=== PATIENT | female | born 1945 | race Caucasian/White ===

== ENCOUNTER → 2019-03-14 09:54 | Outpatient (CLI) | payer OTHER, SELFPAY ==
--- NOTE | 2019-03-14 | DI.RAD.S_ITS ---
PROCEDURE: XR LUMBAR SPINE 2-3V INDICATIONS: LOW BACK PAIN TECHNIQUE: 3 views of the lumbar spine were acquired. COMPARISON: [facility], CR, XR THORACIC SPINE 3V, 03/14/2019, 10:15. FINDINGS: Bones: 5 [id number] vertebrae are present. There is normal bony alignment. No vertebral body compression fractures. No suspicious bony lesions. There is moderate degenerative disc disease at L3-L4, and mild degenerative disc disease at other levels. Moderate to severe facet arthropathy at L 3-L4, L4-L5 and L5-S1. Soft tissues: Overlying bowel gas pattern is normal. No suspicious soft tissue calcifications. IMPRESSION: Degenerative disc and facet disease. Dictated by: Jose Guadalupe Willoughby M.D. on 03/14/2019 at 14:34 Approved by: Jose Guadalupe Willoughby M.D. on 03/14/2019 at 14:35
--- NOTE | 2019-03-14 | DI.RAD.S_ITS ---
PROCEDURE: XR THORACIC SPINE 3V INDICATIONS: THORACIC BACK PAIN TECHNIQUE: 3 views of the thoracic spine were acquired. COMPARISON: [facility], , XR LUMBAR SPINE 2-3V, 03/14/2019, 10:15. FINDINGS: Bones: Mild compression fracture at T6 and T7 with 25% loss of vertebral body height. No suspicious bony lesions. 12 pairs of ribs are noted, and appear intact where visualized. There is mild degenerative disc disease in thoracic and visualized upper lumbar spine. Soft tissues: No paravertebral stripe thickening. IMPRESSION: 1. Mild compression fracture of T6 and T7 of uncertain chronicity. If there is acute injury, MRI may be helpful. 2. Mild degenerative disc disease. Dictated by: Jose Guadalupe Willoughby M.D. on 03/14/2019 at 14:36 Approved by: Jose Guadalupe Willoughby M.D. on 03/14/2019 at 14:39
== END ==
PROVIDERS: PCP Internal Medicine; Visit Provider Internal Medicine
DX: M54.5 Low back pain (principal); M48.54XA Collapsed vertebra, not elsewhere classified, thoracic region, initial encounter for fracture; M85.851 Other specified disorders of bone density and structure, right thigh; Z78.0 Asymptomatic menopausal state; M51.36 Other intervertebral disc degeneration, lumbar region; M51.34 Other intervertebral disc degeneration, thoracic region; M47.816 Spondylosis without myelopathy or radiculopathy, lumbar region; M47.817 Spondylosis without myelopathy or radiculopathy, lumbosacral region
CPT/HCPCS: 72072; 72100; 77080

== ENCOUNTER → 2020-04-30 12:02 | Outpatient (CLI) | payer OTHER, SELFPAY ==
--- NOTE | 2020-04-30 12:05 | DI.RAD.S_ITS ---
PROCEDURE: XR KNEE RT 3V INDICATIONS: Right knee pain TECHNIQUE: 3 views of the knee were acquired. COMPARISON: None. FINDINGS: Bones: No fractures or dislocations. No suspicious bony lesions. Moderate patellofemoral and lateral compartment osteoarthritis. Mild medial compartment osteoarthritis. Soft tissues: No joint effusion. No suspicious soft tissue calcifications. IMPRESSION: 1. Osteoarthritis. 2. No acute osseous lesion. If symptoms and/or clinical suspicion for pathology persists, further assessment with advanced imaging (e.g. CT, MRI or bone scan) may be helpful. Dictated by: Viki Romero MD, PhD on 04/30/2020 at 17:16 Approved by: Viki Romero MD, PhD on 04/30/2020 at 17:17
--- NOTE | 2020-04-30 12:05 | DI.RAD.S_ITS ---
PROCEDURE: XR HAND RT MIN 3V INDICATIONS: Right hand pain TECHNIQUE: 3 views of the hand(s) acquired. COMPARISON: None. FINDINGS: Bones: No fractures or dislocations. Carpal bones are normally aligned. No suspicious bony lesions. Moderate 1st [facility] joint osteoarthritis. Mild triscaphe joint osteoarthritis. Soft tissues: No suspicious soft tissue calcifications. IMPRESSION: 1. Osteoarthritis. 2. No fracture. No acute osseous lesion. If symptoms and/or clinical suspicion for pathology persists, further assessment with repeat radiographs (7-10 days) or advanced imaging (e.g. CT, MRI or bone scan) may be helpful. Dictated by: Viki Romero MD, PhD on 04/30/2020 at 17:15 Approved by: Viki Romero MD, PhD on 04/30/2020 at 17:16
== END ==
PROVIDERS: PCP Registered Nurse; Referring Provider Registered Nurse; Visit Provider Registered Nurse
DX: M25.561 Pain in right knee (principal); M17.11 Unilateral primary osteoarthritis, right knee; M79.641 Pain in right hand; M19.041 Primary osteoarthritis, right hand
CPT/HCPCS: 73130; 73562

== ENCOUNTER → 2020-05-03 08:18 | Outpatient (CLI) | payer OTHER, SELFPAY ==
[2020-05-03 09:02] LABS: Add Manual Diff / Slide Review NO; Basophils Absolute Auto 0 /uL (0-100); Basophils Percent Auto 0.5 % (0-2); Eosinophils Absolute Auto 100 /uL (0-450); Eosinophils Percent Auto 2.1 % (2-4); Hematocrit 44.8 % (36-46); Lymphocytes Absolute Auto 1700 /uL (1100-4500); Lymphocytes Percent Auto 31.3 % (25-40); Mean Corpuscular HGB Conc 33.5 % (30-36); Mean Corpuscular Hemoglobin 30.7 PG (26-34); Mean Corpuscular Volume 91.7 fL (80-100); Monocytes Absolute Auto 500 /uL (0-900); Monocytes Percent Auto 9.1 % (3-14); Neutrophils Absolute Auto 3200 /uL (1500-7000); Platelet Count 239 X10^3/uL (150-400); Red Blood Cell Count 4.89 X10^6/uL (4.0-5.2); Red Cell Distribution Width 15.4 % (11.6-14.8); White Blood Cell Count 5.6 X10^3/uL (4.5-11.0)
[2020-05-03 09:29] LABS: Alanine Aminotransferase 34 IU/L (<35); Albumin 4.4 g/dL (3.5-5.0); Albumin Globulin Ratio 1.6 (1.0-2.8); Alkaline Phosphatase 75 U/L (38-126); Aspartate Aminotransferase 30 IU/L (14-36); BUN Creatinine Ratio 24.8 (6-22); Bilirubin Total 0.7 mg/dL (0.2-1.3); Blood Urea Nitrogen 26 mg/dL (7-17); Calcium 9.5 mg/dL (8.4-10.2); Carbon Dioxide 30 mmol/L (22-32); Chloride 105 mmol/L (98-107); Globulin 2.8 g/dL (1.7-4.1); Glucose 92 mg/dL (80-110); HEMOLYSIS < 15 (0-50); Potassium 4.4 mmol/L (3.4-5.1); Sodium 140 mmol/L (137-145); Total Protein 7.2 g/dL (6.3-8.2)
[2020-05-03 09:36] LABS: Appearance Urine UA CLEAR; Bilirubin Urine UA NEGATIVE (NEGATIVE); Color Urine UA YELLOW; Glucose Urine UA NEGATIVE (Negative); Ketones Urine UA NEGATIVE (NEGATIVE); Leukocyte Esterase Urine UA 2+ (NEGATIVE); Nitrite Urine UA NEGATIVE (Negative); Occult Blood Urine UA TRACE-LYSED (Negative); Protein Urine UA NEGATIVE (Negative); Specific Gravity Urine UA 1.015 (1.000-1.035); Urobilinogen Urine UA 0.2 E.U./dL (0.2)
[2020-05-03 09:40] LABS: Bacteria Urine None Seen; RBC Urine None Seen (0-5/HPF)
[2020-05-03 09:49] LABS: Amorphous Sediment Urine 1+; Culture Indicated Urine Specimen Cultured; WBC Urine 5-10/HPF (0-5/HPF)
== END ==
PROVIDERS: PCP Registered Nurse; Referring Provider Registered Nurse; Visit Provider Registered Nurse
DX: Z00.00 Encounter for general adult medical examination without abnormal findings (principal); I10 Essential (primary) hypertension
CPT/HCPCS: 36415; 80053; 81003; 81015; 85025; 87086

== ENCOUNTER → 2020-05-23 08:34 | Outpatient (CLI) | payer OTHER, SELFPAY ==
[2020-05-23 09:44] LABS: Cholesterol 205 mg/dL (140-199); HDL Cholesterol 60 mg/dL (40-60); LDL Cholesterol Calculated 127 mg/dL (<100); Triglycerides 88 mg/dL (35-150)
== END ==
PROVIDERS: PCP Registered Nurse; Referring Provider Registered Nurse; Visit Provider Registered Nurse
DX: E78.5 Hyperlipidemia, unspecified (principal)
CPT/HCPCS: 36415; 80061

== ENCOUNTER → 2020-11-29 07:45 | Outpatient (CLI) | payer OTHER, SELFPAY ==
[2020-11-29 09:19] LABS: Cholesterol 124 mg/dL (140-199); HDL Cholesterol 62 mg/dL (40-60); LDL Cholesterol Calculated 51 mg/dL (<100); Triglycerides 53 mg/dL (35-150)
== END ==
PROVIDERS: PCP Registered Nurse; Referring Provider Registered Nurse; Visit Provider Registered Nurse
DX: E78.5 Hyperlipidemia, unspecified (principal)
CPT/HCPCS: 36415; 80061

== ENCOUNTER → 2020-12-31 13:53 | Outpatient (CLI) | payer OTHER, SELFPAY ==
[2020-12-31 15:44] LABS: Alanine Aminotransferase 30 IU/L (<35); Albumin 4.3 g/dL (3.5-5.0); Albumin Globulin Ratio 1.5 (1.0-2.8); Alkaline Phosphatase 86 U/L (38-126); Aspartate Aminotransferase 34 IU/L (14-36); BUN Creatinine Ratio 19.6 (6-22); Bilirubin Total 0.6 mg/dL (0.2-1.3); Blood Urea Nitrogen 27 mg/dL (7-17); Carbon Dioxide 27 mmol/L (22-32); Chloride 104 mmol/L (98-107); Estimated Glomerular Filt Rate 37.2 mL/min (>60); Globulin 2.8 g/dL (1.7-4.1); Glucose 115 mg/dL (80-110); HEMOLYSIS < 15 (0-50); Potassium 4.1 mmol/L (3.4-5.1); Sodium 139 mmol/L (137-145); Total Protein 7.1 g/dL (6.3-8.2)
== END ==
PROVIDERS: PCP Registered Nurse; Referring Provider Registered Nurse; Visit Provider Registered Nurse
DX: I10 Essential (primary) hypertension (principal)
CPT/HCPCS: 36415; 80053

== ENCOUNTER 2022-03-18 09:29 | Emergency (ER) | payer OTHER, SELFPAY ==
[2022-03-18 09:41] VITALS: BP 170/79; PULSE 70; RESP 16; TEMP 36.4; O2SAT 98; BMI 26.6
[2022-03-18 10:10] LABS: INR 1.3 (0.9-1.3); Prothrombin Time 14.4 SECONDS (10.1-12.7)
[2022-03-18 10:13] LABS: Add Manual Diff / Slide Review NO; Basophils Absolute Auto 0 /uL (0-100); Basophils Percent Auto 0.5 % (0-2); Eosinophils Absolute Auto 200 /uL (0-450); Eosinophils Percent Auto 3.2 % (2-4); Hematocrit 37.6 % (36-46); Hemoglobin 12.9 g/dL (12.0-16.0); Lymphocytes Absolute Auto 1300 /uL (1100-4500); Lymphocytes Percent Auto 17.5 % (25-40); Mean Corpuscular HGB Conc 34.3 % (30-36); Mean Corpuscular Hemoglobin 30.7 PG (26-34); Mean Corpuscular Volume 89.5 fL (80-100); Monocytes Absolute Auto 400 /uL (0-900); Monocytes Percent Auto 5.8 % (3-14); Neutrophils Absolute Auto 5600 /uL (1500-7000); PTT Partial Thromboplastin Tim 32 SECONDS (26-36); Platelet Count 210 X10^3/uL (150-400); Red Cell Distribution Width 15.7 % (11.6-14.8); White Blood Cell Count 7.7 X10^3/uL (4.5-11.0)
[2022-03-18 10:19] LABS: Alanine Aminotransferase 21 IU/L (<35); Albumin 4.1 g/dL (3.5-5.0); Albumin Globulin Ratio 1.4 (1.0-2.8); Alkaline Phosphatase 100 U/L (38-126); Aspartate Aminotransferase 28 IU/L (14-36); BUN Creatinine Ratio 28.1 (6-22); Bilirubin Total 0.7 mg/dL (0.2-1.3); Blood Urea Nitrogen 36 mg/dL (7-17); Calcium 9.5 mg/dL (8.4-10.2); Carbon Dioxide 27 mmol/L (22-32); Chloride 104 mmol/L (98-107); Estimated Glomerular Filt Rate 43 mL/min (>60); Globulin 2.9 g/dL (1.7-4.1); Glucose 102 mg/dL (80-110); HEMOLYSIS < 15 (0-50); Potassium 4.5 mmol/L (3.4-5.1); Sodium 141 mmol/L (137-145)
[2022-03-18 14:35] VITALS: BP 141/75; PULSE 74; RESP 20; O2SAT 98
--- NOTE | 2022-03-18 15:15 | DI.CT.S_ITS ---
PROCEDURE: CT ABDOMEN PELVIS W CON INDICATIONS: GI bleed, hx diverticulitis TECHNIQUE: After the administration of intravenous contrast, axial sections acquired from the lung bases to the pubic symphysis. Coronal and sagittal reformats were performed. For radiation dose reduction, the following was used: automated exposure control, adjustment of mA and/or kV according to patient size. COMPARISON: None. FINDINGS: Image quality: Excellent. Lung bases: Bibasilar dependent atelectasis is seen. Heart: No significant findings. ABDOMEN: Liver: Liver is normal in size. Hepatic steatosis is noted, no discrete hepatic lesion. Gallbladder: Gallbladder is within normal limits. Biliary ducts: Unremarkable. Pancreas: Unremarkable. Spleen: Unremarkable. Adrenal Glands: Unremarkable. Kidneys and Ureters: Small bilateral renal cysts are seen. No renal stones or hydronephrosis. No hydroureter. Stomach and Bowel: There is no bowel obstruction. No stomach or small bowel wall thickening. Colonic diverticulosis is seen. No colonic wall thickening or mesenteric fat stranding is noted. No abscess collection. Appendix is not definitively identified. No bowel wall thickening or mesenteric fat stranding is seen in right lower quadrant abdomen. Peritoneum: No abnormal intraperitoneal fluid. No free air. Ventral Wall: No hernias. Abdominal Nodes: No retroperitoneal or mesenteric adenopathy by size criteria. Vessels: Aorta and inferior vena cava are normal in size. PELVIS: Pelvic Organs: Unremarkable. Bladder: Unremarkable. Pelvic Nodes: No enlarged lymph nodes. Miscellaneous: No hernias are seen. Bones: No suspicious bony lesion. Age indeterminate anterior wedge compression deformities at T11, T12 and L1 levels are seen new since 2019 study. IMPRESSION: 1. Extensive colonic diverticulosis without CT evidence of acute diverticulitis. No abscess collection. No free fluid or free air. No bowel obstruction. 2. Bilateral renal cysts. No renal stones or hydronephrosis. 3. Age indeterminate anterior wedge compression deformities at T11 through L1 levels new since 2019 study. Clinical correlation is recommended. Dictated by: Kamari Thomson M.D. on 03/18/2022 at 16:20 Approved by: Kamari Thomson M.D. on 03/18/2022 at 16:26
--- NOTE | 2022-03-18 15:17 | ED_ITS ---
HPI - GI Bleed <Siena Ron Esparza, [facility] - Last Filed: 03/18/22 17:50> General Chief complaint: GI Bleed Stated complaint: Vaginal bleeding, went through bath towels Time Seen by Provider: 03/18/22 15:04 History of Present Illness HPI Narrative: This is a pleasant 77-year-old female with history of diverticulitis and GI bleeding in the past, coarctation of aorta, hyperlipidemia, and osteoporosis who presents to the emergency department after she had rectal bleeding this morning which she states was bright red in color and a lot more blood than she has had an stool in the past. She states she has not had fever or chills but endorses nausea today, denies any vomiting. She denies any abdominal pain or flank pain, denies any rectal pain or pain with bowel movements. She denies knowing if she has any hemorrhoids. She states that she felt dizzy afterwards, came in for evaluation because she has not been feeling well. She states that she has had a new provider change, she is anticipating seeing the new doctor weeks and she is a previous patient of Dr. Schneider. She states that she had diverticulitis about 8 years ago, she states that she lost a lot of blood and had to go to [place] and receive blood transfusions. She was concerned about how much blood she lost this morning and if it was the same or not. She states that she is likely dehydrated today, she has not drink very much water. Related Data Previous Rx's Medication Instructions Recorded atorvastatin 20 mg tablet See Rx Instructions .Route 09/10/21 .COMPLEX #90 tabs triamcinolone acetonide 0.1 % 1 applic topical TID #80 grams 02/05/22 topical cream atenolol 50 mg tablet 50 mg PO BID #180 tabs 02/17/22 alendronate 70 mg tablet See Rx Instructions .Route 03/10/22 .COMPLEX #12 tabs ondansetron 4 mg disintegrating 4 mg PO Q8H PRN nausea and 03/18/22 tablet vomiting #10 tabs pantoprazole 20 mg tablet,delayed 20 mg PO DAILY #20 tabs 03/18/22 release (Protonix) polyethylene glycol 3350 17 17 g PO BID PRN constipation #119 03/18/22 gram/dose oral powder (Miralax) grams Allergies Allergy/AdvReac Type Severity Reaction Status Date / Time Sulfa (Sulfonamide Allergy Unknown Verified 02/03/22 15:51 Antibiotics) Review of Systems <CONCEPCIÓN Yancey - Last Filed: 03/18/22 17:50> Review of Systems Narrative: Review of systems is negative for acute abnormalities unless otherwise noted in HPI Patient History <CONCEPCIÓN Yancey - Last Filed: 03/18/22 17:50> Medical History Abnormal laboratory test Bee sting Carpal tunnel syndrome (~2019) Cellulitis Chicken pox Essential hypertension Hearing loss Measles Osteoporosis Wears glasses Surgical History Anesthesia Coarctation of aorta Family History Father Lung cancer Hypertension Sister Hypertension Social History Smoking Status: Never smoker alcohol intake: current (3 glasses wine per week ) substance use type: does not use Smoking Status: Never smoker Exam <CONCEPCIÓN Yancey - Last Filed: 03/18/22 17:50> Narrative Exam Narrative: Reviewed vitals signs and nursing notes. General: cooperative, comfortable, in no acute distress, well groomed, appears fatigued HEENT: symmetrical facial expressions, moist mucous membranes Cardiovascular: regular rate and rhythm, no peripheral edema, warm extremities Respiratory: normal effort, able to speak in complete sentences, without wheezing, stridor, or abnormal breath sounds. No retractions or tachypnea. GI: abdomen soft, nontender to palpation, nondistended, without masses, rebound tenderness or exquisite tenderness with exam. MSK: moves all extremities, neurovascularly intact, no weakness, normal tone Rectal exam with guaiac positive stool, no significant tenderness, no palpable hemorrhoids Skin: brisk capillary refill, without pallor or erythema Neuro: normal speech and cognition, A&O x3, ambulatory, clear speech Psych: mental status is grossly normal, congruent mood, normal affect, pleasant and cooperative Initial Vital Signs Initial Vital Signs: Vital Signs Temperature 97.6 F 03/18/22 09:41 Pulse Rate 70 03/18/22 09:41 Respiratory Rate 16 03/18/22 09:41 Blood Pressure 170/79 H 03/18/22 09:41 Pulse Oximetry 98 03/18/22 09:41 Oxygen Delivery Method 03/18/22 09:41 <Liss Mae MD - Last Filed: 03/19/22 05:09> Initial Vital Signs Initial Vital Signs: Vital Signs Temperature 97.6 F 03/18/22 09:41 Pulse Rate 70 03/18/22 09:41 Respiratory Rate 16 03/18/22 09:41 Blood Pressure 170/79 H 03/18/22 09:41 Pulse Oximetry 98 03/18/22 09:41 Oxygen Delivery Method 03/18/22 09:41 Course <CONCEPCIÓN Yancey - Last Filed: 03/18/22 17:50> Orders Ordered: Discontinued Medications Hydrocortisone (Hydrocortisone 25 Mg Supp) 25 mg CA NOW ONE Stop: 03/18/22 15:06 Last Admin: 03/18/22 17:02 Dose: 25 mg Documented By: TALIA Lactated Ringer's (Lactated Ringers) 1,000 mls @ 1,000 mls/hr IV BOLUS ONE Stop: 03/18/22 16:14 Last Infusion: 03/18/22 16:47 Dose: 0 mls/hr Documented By: Admin: 03/18/22 15:35 Dose: 1,000 mls/hr Documented By: TALIA Reevaluation(s) Reevaluation #1: Hemoccult is positive, no significant tenderness with rectal exam Vital Signs Vital signs: Vital Signs - 8 hr 03/18/22 14:35 03/18/22 17:08 Pulse Rate 74 88 Respiratory Rate 20 16 Blood Pressure 141/75 H 138/76 Pulse Oximetry 98 98 Oxygen Delivery Method Room Air Room Air <Liss Mae MD - Last Filed: 03/19/22 05:09> Orders Ordered: Discontinued Medications Hydrocortisone (Hydrocortisone 25 Mg Supp) 25 mg CA NOW ONE Stop: 03/18/22 15:06 Last Admin: 03/18/22 17:02 Dose: 25 mg Documented By: TALIA Lactated Ringer's (Lactated Ringers) 1,000 mls @ 1,000 mls/hr IV BOLUS ONE Stop: 03/18/22 16:14 Last Infusion: 03/18/22 16:47 Dose: 0 mls/hr Documented By: Admin: 03/18/22 15:35 Dose: 1,000 mls/hr Documented By: KEM Vital Signs Vital signs: Vital Signs - 8 hr 03/18/22 14:35 03/18/22 17:08 Pulse Rate 74 88 Respiratory Rate 20 16 Blood Pressure 141/75 H 138/76 Pulse Oximetry 98 98 Oxygen Delivery Method Room Air Room Air MDM - GI Bleed <CONCEPCIÓN Yancey - Last Filed: 03/18/22 17:50> Lab Data Result diagrams: 03/18/22 15:15 03/18/22 09:54 Labs: Lab Results 03/18/22 03/18/22 03/18/22 Range/Units 09:54 09:54 09:54 WBC 7.7 (4.5-11.0) X10^3/uL RBC 4.20 (4.0-5.2) X10^6/uL Hgb 12.9 (12.0-16.0) g/dL Hct 37.6 (36-46) % MCV 89.5 (80-100) fL MCH 30.7 (26-34) PG MCHC 34.3 (30-36) % RDW 15.7 H (11.6-14.8) % Plt Count 210 (150-400) X10^3/uL Neut % (Auto) 73.0 (50-75) % Lymph % (Auto) 17.5 L (25-40) % [place] % (Auto) 5.8 (3-14) % Eos % (Auto) 3.2 (2-4) % Baso % (Auto) 0.5 (0-2) % Neut # (Auto) 5600 (9955-9431) /uL Lymph # (Auto) 1300 (4147-7869) /uL [place] # (Auto) 400 (0-900) /uL Eos # (Auto) 200 (0-450) /uL Baso # (Auto) 0 (0-100) /uL PT 14.4 H (10.1-12.7) SECONDS INR 1.3 (0.9-1.3) APTT 32 (26-36) SECONDS Sodium 141 (137-145) mmol/L Potassium 4.5 (3.4-5.1) mmol/L Chloride 104 (98-107) mmol/L Carbon Dioxide 27 (22-32) mmol/L BUN 36 H (7-17) mg/dL Creatinine 1.28 H (0.52-1.04) mg/dL Estimated GFR 43 L (>60) mL/min BUN/Creatinine Ratio 28.1 H (6-22) Glucose 102 (80-110) mg/dL Lactate (0.7-2.1) mmol/L Calcium 9.5 (8.4-10.2) mg/dL Magnesium (1.6-2.3) mg/dL Total Bilirubin 0.7 (0.2-1.3) mg/dL AST 28 (14-36) IU/L ALT 21 (<35) IU/L Alkaline Phosphatase 100 (38-126) U/L C-Reactive Protein (<1.0) mg/dL Total Protein 7.0 (6.3-8.2) g/dL Albumin 4.1 (3.5-5.0) g/dL Globulin 2.9 (1.7-4.1) g/dL Albumin/Globulin Ratio 1.4 (1.0-2.8) Blood Type Antibody Screen 03/18/22 03/18/22 03/18/22 Range/Units 09:54 09:54 09:54 WBC (4.5-11.0) X10^3/uL RBC (4.0-5.2) X10^6/uL Hgb (12.0-16.0) g/dL Hct (36-46) % MCV (80-100) fL MCH (26-34) PG MCHC (30-36) % RDW (11.6-14.8) % Plt Count (150-400) X10^3/uL Neut % (Auto) (50-75) % Lymph % (Auto) (25-40) % [place] % (Auto) (3-14) % Eos % (Auto) (2-4) % Baso % (Auto) (0-2) % Neut # (Auto) (8969-3946) /uL Lymph # (Auto) (1231-9875) /uL [place] # (Auto) (0-900) /uL Eos # (Auto) (0-450) /uL Baso # (Auto) (0-100) /uL PT (10.1-12.7) SECONDS INR (0.9-1.3) APTT (26-36) SECONDS Sodium (137-145) mmol/L Potassium (3.4-5.1) mmol/L Chloride (98-107) mmol/L Carbon Dioxide (22-32) mmol/L BUN (7-17) mg/dL Creatinine (0.52-1.04) mg/dL Estimated GFR (>60) mL/min BUN/Creatinine Ratio (6-22) Glucose (80-110) mg/dL Lactate 1.2 (0.7-2.1) mmol/L Calcium (8.4-10.2) mg/dL Magnesium 1.8 (1.6-2.3) mg/dL Total Bilirubin (0.2-1.3) mg/dL AST (14-36) IU/L ALT (<35) IU/L Alkaline Phosphatase (38-126) U/L C-Reactive Protein < 0.5 (<1.0) mg/dL Total Protein (6.3-8.2) g/dL Albumin (3.5-5.0) g/dL Globulin (1.7-4.1) g/dL Albumin/Globulin Ratio (1.0-2.8) Blood Type O Positive Antibody Screen Negative 03/18/22 Range/Units 15:15 WBC (4.5-11.0) X10^3/uL RBC (4.0-5.2) X10^6/uL Hgb 13.2 (12.0-16.0) g/dL Hct 39.0 (36-46) % MCV (80-100) fL MCH (26-34) PG MCHC (30-36) % RDW (11.6-14.8) % Plt Count (150-400) X10^3/uL Neut % (Auto) (50-75) % Lymph % (Auto) (25-40) % [place] % (Auto) (3-14) % Eos % (Auto) (2-4) % Baso % (Auto) (0-2) % Neut # (Auto) (6712-0166) /uL Lymph # (Auto) (2760-4863) /uL [place] # (Auto) (0-900) /uL Eos # (Auto) (0-450) /uL Baso # (Auto) (0-100) /uL PT (10.1-12.7) SECONDS INR (0.9-1.3) APTT (26-36) SECONDS Sodium (137-145) mmol/L Potassium (3.4-5.1) mmol/L Chloride (98-107) mmol/L Carbon Dioxide (22-32) mmol/L BUN (7-17) mg/dL Creatinine (0.52-1.04) mg/dL Estimated GFR (>60) mL/min BUN/Creatinine Ratio (6-22) Glucose (80-110) mg/dL Lactate (0.7-2.1) mmol/L Calcium (8.4-10.2) mg/dL Magnesium (1.6-2.3) mg/dL Total Bilirubin (0.2-1.3) mg/dL AST (14-36) IU/L ALT (<35) IU/L Alkaline Phosphatase (38-126) U/L C-Reactive Protein (<1.0) mg/dL Total Protein (6.3-8.2) g/dL Albumin (3.5-5.0) g/dL Globulin (1.7-4.1) g/dL Albumin/Globulin Ratio (1.0-2.8) Blood Type Antibody Screen Guaiac stool is positive Imaging Data CT scan - abdomen/pelvis: Radiologist's Impression: PROCEDURE:? CT ABDOMEN PELVIS W CON ? INDICATIONS:? GI bleed, hx diverticulitis ? TECHNIQUE:? After the administration of intravenous contrast, axial sections acquired from the lung bases to the pubic symphysis.? Coronal and sagittal reformats were performed.? For radiation dose reduction, the following was used:? automated exposure control, adjustment of mA and/or kV according to patient size.? ? COMPARISON:? None. ? FINDINGS:? Image quality:? Excellent.? ? Lung bases:? Bibasilar dependent atelectasis is seen. Heart:? No significant findings. ? ABDOMEN: Liver:? Liver is normal in size.? Hepatic steatosis is noted, no discrete hepatic lesion. Gallbladder:? Gallbladder is within normal limits. Biliary ducts:? Unremarkable.? ? Pancreas:? Unremarkable.? ? Spleen:? Unremarkable.? ? Adrenal Glands:? Unremarkable.? ? Kidneys and Ureters:? Small bilateral renal cysts are seen.? No renal stones or hydronephrosis.? No hydroureter. ? Stomach and Bowel:? There is no bowel obstruction.? No stomach or small bowel wall thickening.? Colonic diverticulosis is seen.? No colonic wall thickening or mesenteric fat stranding is noted.? No abscess collection.? Appendix is not definitively identified. ?No bowel wall thickening or mesenteric fat stranding is seen in right lower quadrant abdomen. Peritoneum:? No abnormal intraperitoneal fluid.? No free air.? ? Ventral Wall: ? No hernias.? Abdominal Nodes:? No retroperitoneal or mesenteric adenopathy by size criteria.? Vessels:? Aorta and inferior vena cava are normal in size.? ? PELVIS: Pelvic Organs:? Unremarkable.? ? Bladder:? Unremarkable.? ? Pelvic Nodes: No enlarged lymph nodes.? Miscellaneous: No hernias are seen. ? ? ? Bones:? No suspicious bony lesion.? Age indeterminate anterior wedge compression deformities at T11, T12 and L1 levels are seen new since 2019 study. ? ? IMPRESSION:? 1. Extensive colonic diverticulosis without CT evidence of acute diverticulitis.? No abscess collection.? No free fluid or free air.? No bowel obstruction. 2. Bilateral renal cysts.? No renal stones or hydronephrosis. 3.? Age indeterminate anterior wedge compression deformities at T11 through L1 levels new since 2019 study.? Clinical correlation is recommended. ? ? Dictated by: Kamari Thomson M.D. on 03/18/2022 at 16:20 ? ? Approved by: Kamari Thomson M.D. on 03/18/2022 at 16:26 ? [facility] Narrative Medical decision making narrative: This is a 77-year-old female who presents to the emergency department for GI bleeding which happened this morning, states it was bright red, endorses a history of this in the past with diverticulitis requiring multiple blood transfusions. Patient denied any pain, she waited in the waiting room for approximately 6 hours, when she came back to a room, there was no further bleeding, rectal exam without significant tenderness, hemoccult is positive, abdominal CT was ordered for evaluation of diverticulitis versus rectal bleeding. Patient was given 1 L lactated Ringer's, and a CA hydrocortisone suppository was placed for any hemorrhoidal bleeding. No significant findings on her lab work, her initial H&H is 12.9 and 37.6, repeat completed 5 hours later was 13.2 and 39. Her creatinine baseline is between 1.05 and 1.3, today it was 1.28, GFR 43, lactate of 1.2, magnesium of 1.8 no elevation to her liver enzymes, CRP is 0.5. CT abdomen pelvis obtained for history of diverticulosis with concern for bleeding from diverticula. CT shows extensive colonic diverticulosis without CT evidence of acute diverticulitis, no abscess collection, no free fluid or free air. No bowel obstruction, bilateral renal cysts, no renal stones or hydronephrosis, she did tell me about a fall she had 4 weeks ago, at approximately the thoracic/lumbar junction, CT shows age indeterminate anterior wedge compression deformities at T11 through L1. On exam patient did not have point tenderness but did endorse muscle tension to the right lumbar musculature. Patient denies any urinary complaints whatsoever, her lab work is reassuring, I placed a consultation for [facility] so patient can schedule colonoscopy since she is between providers. Dr. Schneider has left and she is waiting to see a new provider Dr. Robb, patient understands to follow-up with both [facility] and schedule the soonest available appointment with Dr. Robb for recheck. I encouraged her to stay hydrated, return to the emergency department for any worsening of her symptoms or worse bleeding. I did start her on Protonix in case this is upper GI/duodenal ulcer, she was given a prescription of Zofran for nausea and encouraged to use MiraLax as needed for soft stools. Patient is in physical therapy and seeing a chiropractor for her back injury 4 weeks ago and does not have any weakness. No peritoneal signs on abdominal exam. Patient remains p.o. tolerant. Serial abdominal exam without increase in abdominal pain. Given history and exam, low suspicion for acute abdominal process, such as acute cholecystitis, pancreatitis, perforated viscus, atypical appendicitis, colitis, diverticulitis or torsion. Extensive conversation about ER return precautions and need for close follow-up. Patient is appropriate and amenable to discharge home. Vital signs are stable on repeat examination is unremarkable. Patient has been informed of results. Patient has been given strict return to ER precautions for any new or worsening symptoms. Patient understands to follow up closely with outpatient providers as instructed. Patient understands plan and agrees to discharge home. All questions and concerns answered at this time. <Liss Mae MD - Last Filed: 03/19/22 05:09> Lab Data Labs: Lab Results 03/18/22 03/18/22 03/18/22 Range/Units 09:54 09:54 09:54 WBC 7.7 (4.5-11.0) X10^3/uL RBC 4.20 (4.0-5.2) X10^6/uL Hgb 12.9 (12.0-16.0) g/dL Hct 37.6 (36-46) % MCV 89.5 (80-100) fL MCH 30.7 (26-34) PG MCHC 34.3 (30-36) % RDW 15.7 H (11.6-14.8) % Plt Count 210 (150-400) X10^3/uL Neut % (Auto) 73.0 (50-75) % Lymph % (Auto) 17.5 L (25-40) % [place] % (Auto) 5.8 (3-14) % Eos % (Auto) 3.2 (2-4) % Baso % (Auto) 0.5 (0-2) % Neut # (Auto) 5600 (3678-0127) /uL Lymph # (Auto) 1300 (7287-7481) /uL [place] # (Auto) 400 (0-900) /uL Eos # (Auto) 200 (0-450) /uL Baso # (Auto) 0 (0-100) /uL PT 14.4 H (10.1-12.7) SECONDS INR 1.3 (0.9-1.3) APTT 32 (26-36) SECONDS Sodium 141 (137-145) mmol/L Potassium 4.5 (3.4-5.1) mmol/L Chloride 104 (98-107) mmol/L Carbon Dioxide 27 (22-32) mmol/L BUN 36 H (7-17) mg/dL Creatinine 1.28 H (0.52-1.04) mg/dL Estimated GFR 43 L (>60) mL/min BUN/Creatinine Ratio 28.1 H (6-22) Glucose 102 (80-110) mg/dL Lactate (0.7-2.1) mmol/L Calcium 9.5 (8.4-10.2) mg/dL Magnesium (1.6-2.3) mg/dL Total Bilirubin 0.7 (0.2-1.3) mg/dL AST 28 (14-36) IU/L ALT 21 (<35) IU/L Alkaline Phosphatase 100 (38-126) U/L C-Reactive Protein (<1.0) mg/dL Total Protein 7.0 (6.3-8.2) g/dL Albumin 4.1 (3.5-5.0) g/dL Globulin 2.9 (1.7-4.1) g/dL Albumin/Globulin Ratio 1.4 (1.0-2.8) Blood Type Antibody Screen 03/18/22 03/18/22 03/18/22 Range/Units 09:54 09:54 09:54 WBC (4.5-11.0) X10^3/uL RBC (4.0-5.2) X10^6/uL Hgb (12.0-16.0) g/dL Hct (36-46) % MCV (80-100) fL MCH (26-34) PG MCHC (30-36) % RDW (11.6-14.8) % Plt Count (150-400) X10^3/uL Neut % (Auto) (50-75) % Lymph % (Auto) (25-40) % [place] % (Auto) (3-14) % Eos % (Auto) (2-4) % Baso % (Auto) (0-2) % Neut # (Auto) (4308-8446) /uL Lymph # (Auto) (4187-0169) /uL [place] # (Auto) (0-900) /uL Eos # (Auto) (0-450) /uL Baso # (Auto) (0-100) /uL PT (10.1-12.7) SECONDS INR (0.9-1.3) APTT (26-36) SECONDS Sodium (137-145) mmol/L Potassium (3.4-5.1) mmol/L Chloride (98-107) mmol/L Carbon Dioxide (22-32) mmol/L BUN (7-17) mg/dL Creatinine (0.52-1.04) mg/dL Estimated GFR (>60) mL/min BUN/Creatinine Ratio (6-22) Glucose (80-110) mg/dL Lactate 1.2 (0.7-2.1) mmol/L Calcium (8.4-10.2) mg/dL Magnesium 1.8 (1.6-2.3) mg/dL Total Bilirubin (0.2-1.3) mg/dL AST (14-36) IU/L ALT (<35) IU/L Alkaline Phosphatase (38-126) U/L C-Reactive Protein < 0.5 (<1.0) mg/dL Total Protein (6.3-8.2) g/dL Albumin (3.5-5.0) g/dL Globulin (1.7-4.1) g/dL Albumin/Globulin Ratio (1.0-2.8) Blood Type O Positive Antibody Screen Negative 03/18/22 Range/Units 15:15 WBC (4.5-11.0) X10^3/uL RBC (4.0-5.2) X10^6/uL Hgb 13.2 (12.0-16.0) g/dL Hct 39.0 (36-46) % MCV (80-100) fL MCH (26-34) PG MCHC (30-36) % RDW (11.6-14.8) % Plt Count (150-400) X10^3/uL Neut % (Auto) (50-75) % Lymph % (Auto) (25-40) % [place] % (Auto) (3-14) % Eos % (Auto) (2-4) % Baso % (Auto) (0-2) % Neut # (Auto) (3839-1080) /uL Lymph # (Auto) (0999-8198) /uL [place] # (Auto) (0-900) /uL Eos # (Auto) (0-450) /uL Baso # (Auto) (0-100) /uL PT (10.1-12.7) SECONDS INR (0.9-1.3) APTT (26-36) SECONDS Sodium (137-145) mmol/L Potassium (3.4-5.1) mmol/L Chloride (98-107) mmol/L Carbon Dioxide (22-32) mmol/L BUN (7-17) mg/dL Creatinine (0.52-1.04) mg/dL Estimated GFR (>60) mL/min BUN/Creatinine Ratio (6-22) Glucose (80-110) mg/dL Lactate (0.7-2.1) mmol/L Calcium (8.4-10.2) mg/dL Magnesium (1.6-2.3) mg/dL Total Bilirubin (0.2-1.3) mg/dL AST (14-36) IU/L ALT (<35) IU/L Alkaline Phosphatase (38-126) U/L C-Reactive Protein (<1.0) mg/dL Total Protein (6.3-8.2) g/dL Albumin (3.5-5.0) g/dL Globulin (1.7-4.1) g/dL Albumin/Globulin Ratio (1.0-2.8) Blood Type Antibody Screen Discharge Plan Departure Patient Disposition: Home Clinical Impression: BRBPR (bright red blood per rectum) Gastrointestinal bleeding Qualifiers: GI bleed type/associated pathology: diverticulosis Qualified Code(s): K57.91 - Diverticulosis of intestine, part unspecified, without perforation or abscess with bleeding Instructions: Gastrointestinal Bleeding Activity Restrictions/Additional Instructions: *You have been diagnosed with gastrointestinal bleeding. Hopefully this is hemorrhoidal, please call [facility] and schedule a colonoscopy as able. I placed a consultation for you. Please also call Dr. Sara robb and schedule an appointment to be seen at the earliest convenience for a recheck. Thank you for trusting us with your care and a long wait today. Luckily your blood counts were stable even on recheck, please continue to stay hydrated if you develop a fever, or any urinary complaints or abdominal pain, please come back to the emergency department. Please start a clear liquid diet and eat simple foods without any heavy bobby's or proteins for a couple days. This will hopefully help. Please start taking MiraLax either once or twice a day until you have soft stools. You can take Zofran as needed for nausea, please take protonix each morning on an empty stomach, this is for acid and hopefully will treat any bleeding ulcer if you have 1 up higher in your colon. Please stay hydrated, schedule an appointment for follow-up with Dr. Robb and with [facility] and I hope you feel better soon. *What to do: *Please continue to take your regular medications as directed. [x ] New medication prescriptions sent to your pharmacy: [ [facility]] [ ] New medication written as a paper prescription [ ] No new medications given *Please follow up with your primary care provider in 2-3 days, call for an appointment. Let them know you were seen in the Emergency Department and that we asked that you be seen for follow-up. We will electronically transmit a record of today's note if your PCP is in our system *If you do not have a primary care provider please contact [phone] to establish care with one of the [facility] primary care providers. *Return to Emergency Department if you should have any new, worsening, or concerning symptoms, such as [fever greater than 101F, chills, worsening pain, persistent vomiting or other bothersome symptoms]. Prescriptions: New ondansetron 4 mg tablet,disintegrating 4 mg PO Q8H PRN (Reason: nausea and vomiting) Qty: 10 0RF polyethylene glycol 3350 [Miralax] 17 gram/dose powder 17 g PO BID PRN (Reason: constipation) Qty: 119 0RF pantoprazole [Protonix] 20 mg tablet,delayed release (DR/EC) 20 mg PO DAILY Qty: 20 0RF No Action atorvastatin 20 mg tablet See Rx Instructions .ROUTE .COMPLEX Qty: 90 1RF Dose Instruction: TAKE 1 TABLET (20 MG) BY MOUTH AT BEDTIME FOR 90 DAYS FOR HYPERLIPIDEMIA Rx Instructions: TAKE 1 TABLET (20 MG) BY MOUTH AT BEDTIME FOR 90 DAYS FOR HYPERLIPIDEMIA triamcinolone acetonide 0.1 % cream 1 applic topical TID Qty: 80 1RF atenolol 50 mg tablet 50 mg PO BID Qty: 180 2RF alendronate 70 mg tablet See Rx Instructions .ROUTE .COMPLEX Qty: 12 0RF Dose Instruction: TAKE 1 TABLET (70 MG) BY MOUTH ONCE A WEEK Rx Instructions: TAKE 1 TABLET (70 MG) BY MOUTH ONCE A WEEK Referrals: [facility] [Provider Group] (for colonoscopy ) Nicko Schneider MD [Primary Care Provider] - Sara Robb DO [Physician] - As soon as possible Visit Report Forms: Patient Portal/API <Liss Mae MD - Last Filed: 03/19/22 05:09> Cosign ED Attending Cosignature Attestation: I was immediately available in the department for consultation throughout this patient's visit. I agree with documentation as above. Liss Mae MD
--- NOTE | 2022-03-18 15:18 | CM.MNRNOTE ---
Reports bright red blood per rectum this morning, dizziness after BM. Patient reports decrease PO intake today. Patient has had diverticulitis in the past. Has been nursing a back injury over the last four weeks from fall during pickle ball.
[2022-03-18 15:28] LABS: Hemoglobin 13.2 g/dL (12.0-16.0)
[2022-03-18] MEDS: LACTATED RINGERS 1,000 ML 1000 ML IV (15:35)
[2022-03-18 15:41] LABS: Lactate (Lactic Acid) 1.2 mmol/L (0.7-2.1)
[2022-03-18 15:43] LABS: C-Reactive Protein Quant < 0.5 mg/dL (<1.0); Magnesium 1.8 mg/dL (1.6-2.3)
[2022-03-18] MEDS: HYDROCORTISONE 25 MG SUPP PR (17:02)
[2022-03-18 17:08] VITALS: BP 138/76; PULSE 88; RESP 16; O2SAT 98
== END 2022-03-18 17:08 | disposition home or self-care (01) ==
PROVIDERS: Emergency Medicine; Emergency Provider Nurse Practitioner Critical Care Medicine; PCP Pediatrics
DX: K62.5 Hemorrhage of anus and rectum (principal); K57.91 Diverticulosis of intestine, part unspecified, without perforation or abscess with bleeding
CPT/HCPCS: 36415; 74177; 80053; 83605; 83735; 85014; 85018; 85025; 85610; 85730; 86140; 86850; 86900; 86901; 96360; 99284; Q9967

== ENCOUNTER → 2022-05-05 15:07 | Outpatient (CLI) | payer OTHER, SELFPAY ==
--- NOTE | 2022-05-05 15:08 | DI.MRI.S_ITS ---
PROCEDURE: MR LUMBAR SPINE WO CON INDICATIONS: CLOSED COMPRESSION FRACTURE OF BODY OF L1 VERTEBRA TECHNIQUE: Noncontrast sagittal T1 spin echo and T2 fast echo, sagittal STIR, and T2 fast spin echo through the lumbar spine. In cases with scoliosis, additional coronal T2 fast spin echo may be performed. COMPARISON: [facility], CT, CT ABDOMEN PELVIS W CON, 03/18/2022, 15:44. FINDINGS: Image quality: Excellent. Alignment and Curvature: There is normal bony alignment. Bone Marrow: Marrow is of normal overall signal. There is increased T2 signal within the L1 vertebral body with approximate 40% stenosis. There is slight appearance of retropulsion. Compression deformity at T12 is present measuring 55% as well as superior endplate deformity at T11. These appear chronic. Spinal Cord: Conus medullaris terminates at the L1 level. Visualized cord demonstrates normal signal and size. Paraspinous Soft Tissues: No paravertebral masses. Discs: Moderate to severe multilevel disc desiccation is present. T12-L1: Mild disc bulge with effacement the anterior thecal sac. No foraminal narrowing. L1-L2: Mild disc bulge with effacement of the anterior thecal sac. No foraminal narrowing. Facet and ligamentum flavum hypertrophy are present. L2-L3: No disc bulge, spinal stenosis or foraminal narrowing. Mild facet hypertrophy. L3-L4: Mild disc bulge without spinal stenosis. Eikh-dz-sjbwvlce bilateral foraminal narrowing with facet and ligamentum flavum hypertrophy. L4-L5: Mild disc bulge with mild spinal stenosis. Minimal bilateral foraminal narrowing with facet and ligamentum flavum hypertrophy. L5-S1: Minimal disc bulge without spinal stenosis. Mild narrowing through the subarticular recess on the left. IMPRESSION: Acute/subacute compression deformity at L1 as above. Old compression deformities at T11 and T12. Multilevel spinal stenosis most notable at L4-5 secondary to disc bulge with contributing effect of facet/ligamentum flavum arthropathy. Multilevel foraminal narrowing most severe at L3-4 secondary to facet arthropathy. Dictated by: Funmi Trevino M.D. on 05/06/2022 at 17:21 Approved by: Funmi Trevino M.D. on 05/06/2022 at 17:25
== END ==
PROVIDERS: PCP Registered Nurse Diabetes Educator; Referring Provider Physician Assistant Surgical; Visit Provider Physician Assistant Surgical
DX: S32.010A Wedge compression fracture of first lumbar vertebra, initial encounter for closed fracture (principal); S22.080A Wedge compression fracture of T11-T12 vertebra, initial encounter for closed fracture; S39.012A Strain of muscle, fascia and tendon of lower back, initial encounter; M48.061 Spinal stenosis, lumbar region without neurogenic claudication; M51.36 Other intervertebral disc degeneration, lumbar region; M47.816 Spondylosis without myelopathy or radiculopathy, lumbar region
CPT/HCPCS: 72148

== ENCOUNTER → 2022-07-14 11:27 | Outpatient (CLI) | payer OTHER, SELFPAY | PROVIDERS: PCP Family Medicine; Referring Provider Family Medicine; Visit Provider Family Medicine | DX: M85.851 Other specified disorders of bone density and structure, right thigh (principal); Z78.0 Asymptomatic menopausal state | CPT/HCPCS: 77080 ==

== ENCOUNTER → 2022-08-20 08:24 | Outpatient (CLI) | payer OTHER, SELFPAY ==
[2022-08-20 10:10] LABS: Alanine Aminotransferase 26 IU/L (<35); Albumin 4.2 g/dL (3.5-5.0); Albumin Globulin Ratio 1.8 (1.0-2.8); Alkaline Phosphatase 81 U/L (38-126); Aspartate Aminotransferase 25 IU/L (14-36); BUN Creatinine Ratio 23.3 (6-22); Bilirubin Total 0.8 mg/dL (0.2-1.3); Blood Urea Nitrogen 31 mg/dL (7-17); Calcium 8.9 mg/dL (8.4-10.2); Carbon Dioxide 28 mmol/L (22-32); Chloride 103 mmol/L (98-107); Cholesterol 119 mg/dL (140-199); Estimated Glomerular Filt Rate 41 mL/min (>60); Globulin 2.4 g/dL (1.7-4.1); Glucose 78 mg/dL (80-110); HDL Cholesterol 51 mg/dL (40-60); HEMOLYSIS < 15 (0-50); LDL Cholesterol Calculated 57 mg/dL (<100); Potassium 4.3 mmol/L (3.4-5.1); Sodium 139 mmol/L (137-145); Total Protein 6.6 g/dL (6.3-8.2); Triglycerides 53 mg/dL (35-150)
[2022-08-20 10:16] LABS: Creatinine Urine Random 83.1 mg/dL
== END ==
PROVIDERS: PCP Family Medicine; Referring Provider Family Medicine; Visit Provider Family Medicine
DX: E78.5 Hyperlipidemia, unspecified (principal); I10 Essential (primary) hypertension
CPT/HCPCS: 36415; 80053; 80061; 82043; 82570

== ENCOUNTER 2022-10-08 10:44 | Day surgery (SDC) | payer OTHER, SELFPAY ==
[2022-10-08 11:30] VITALS: BP 141/81; PULSE 74; RESP 18; TEMP 35.8; O2SAT 96; BMI 26.4
[2022-10-08] MEDS: LACTATED RINGERS 1,000 ML 42 ML IV (11:41)
--- NOTE | 2022-10-08 12:23 | PM.HP.1 ---
History of Present Illness History of Present Illness Date Patient Seen: 10/08/22 Time Patient Seen: 12:23 Chief complaint: SDC Narrative: Jackie is a 69-year-old woman here for colonoscopy. She had rectal bleeding last year and colonoscopy about 7 years ago. She would a recent CT scan that showed diverticulosis. See the office note from March for details. [facility] Medical History (Updated 10/08/22 @ 12:24 by Nicko Tillman MD) Abnormal laboratory test Bee sting Carpal tunnel syndrome (~2018) Cellulitis Chicken pox Essential hypertension Hearing loss Measles Osteoporosis Wears glasses Surgical History Anesthesia Coarctation of aorta Family History Father Lung cancer Hypertension Sister Hypertension Social History household members: spouse Smoking Status: Never smoker alcohol intake: current substance use type: does not use Meds Home Medications and Allergies Home Medications Medication Instructions Recorded Confirmed Type triamcinolone acetonide 0.1 % 1 applic topical TID #80 grams 02/05/22 04/01/22 Rx topical cream atenolol 50 mg tablet 50 mg PO BID #180 tabs 02/17/22 10/08/22 Rx polyethylene glycol 3350 17 17 g PO BID PRN constipation #119 03/18/22 04/01/22 Rx gram/dose oral powder (Miralax) grams sodium sul 1.479 gram-potas ch See Rx Instructions PO PER PKG DIR 04/01/22 04/01/22 Rx 0.188 gram-magnes sul 0.225 gram #24 tabs tablet (Sutab) atorvastatin 20 mg tablet 20 mg PO DAILY #90 tabs 07/10/22 10/08/22 Rx alendronate 70 mg tablet See Rx Instructions .Route 07/20/22 10/08/22 Rx .COMPLEX #12 tabs lisinopril 10 mg tablet 10 mg PO DAILY #30 tabs 09/25/22 10/08/22 Rx Allergies Allergy/AdvReac Type Severity Reaction Status Date / Time Sulfa (Sulfonamide Allergy Unknown Verified 04/01/22 10:52 Antibiotics) Exam Vital Signs (past 8 hours): - 10/08/22 11:30 Temperature 96.4 F L Pulse Rate 74 Respiratory Rate 18 Blood Pressure 141/81 H Pulse Oximetry 96 Oxygen Delivery Method Room Air Oxygen Delivery Method Room Air Const General: No acute distress Assessment & Plan Assessment and plan (1) Rectal bleeding: Status: Acute Plan We reviewed the risks and benefits of colonoscopy rectal bleeding and she would like to proceed.
--- NOTE | 2022-10-08 13:28 | PM.OP.COLON ---
Operative Date/Time/Diagnoses Date of procedure: 10/08/22 Time of procedure: 13:28 Pre-op diagnosis: Rectal bleeding Post-op diagnosis: same Procedure & Clinicians Study performed: Colonoscopy Same procedure as scheduled: Yes Surgeon: Nicko Tillman Procedure Notes Procedure in detail: Surgeon: Nicko Tillman MD Anesthesia: Kyara Ferraro DO Procedure: The patient was brought to the endoscopy suite, placed in left lateral decubitus position. The patient was connected to monitoring devices. A time-out was performed. Sedation was administered. Once the patient was adequately sedated, a digital rectal exam was performed and was normal. The scope was then inserted and advanced to the cecum where the appendiceal orifice was identified and photographed. The scope was then slowly withdrawn over greater than 6 minutes. The mucosa was thoroughly inspected. There was pandiverticulosis. The scope was retroflexed in the rectum. No other abnormalities were seen. The scope was straightened and removed. The patient was awakened and brought to recovery. Scope withdrawal time: 10 minutes Sedation time: 15 minutes EBL: 0 Findings: Pandiverticulosis Post-procedure Disposition: PACU
[2022-10-08 13:32] VITALS: BP 112/60; PULSE 69; RESP 16; TEMP 36.8; O2SAT 98
[2022-10-08 13:37] VITALS: BP 112/60; PULSE 68; RESP 16; O2SAT 98
[2022-10-08 13:42] VITALS: BP 112/60; PULSE 67; RESP 16; O2SAT 98
[2022-10-08 13:47] VITALS: BP 112/70; PULSE 66; RESP 16; O2SAT 98
[2022-10-08 14:01] VITALS: BP 124/74; PULSE 78; RESP 15; TEMP 36.8; O2SAT 98
== END 2022-10-08 14:01 | disposition home or self-care (01) ==
PROVIDERS: PCP Family Medicine; Referring Provider Surgery; Visit Provider Surgery
PROC: 0DJD8ZZ Inspection of Lower Intestinal Tract, Via Natural or Artificial Opening Endoscopic (ICD-10-PCS; CPT 45378; principal; 2022-10-08 11:45)
DX: K62.5 Hemorrhage of anus and rectum (principal); K57.30 Diverticulosis of large intestine without perforation or abscess without bleeding
CPT/HCPCS: 45378; J2704

== ENCOUNTER → 2024-01-24 08:22 | Outpatient (CLI) | payer OTHER, SELFPAY ==
[2024-01-24 10:16] LABS: BUN Creatinine Ratio 21.9 (6-22); Blood Urea Nitrogen 40 mg/dL (7-17); Calcium 9.5 mg/dL (8.4-10.2); Carbon Dioxide 25 mmol/L (22-32); Chloride 108 mmol/L (98-107); Cholesterol 152 mg/dL (140-199); Estimated Glomerular Filt Rate 28 mL/min (>60); Glucose 87 mg/dL (80-110); HDL Cholesterol 55 mg/dL (40-60); HEMOLYSIS < 15 (0-50); LDL Cholesterol Calculated 82 mg/dL (<100); Potassium 4.6 mmol/L (3.4-5.1); Sodium 143 mmol/L (137-145); Triglycerides 74 mg/dL (35-150)
[2024-01-24 10:22] LABS: Creatinine Urine Random 74.92 mg/dL
[2024-01-24 10:31] LABS: Microalbumin Urine Random < 0.6 mg/dL (0-1.6)
== END ==
PROVIDERS: PCP Family Medicine; Referring Provider Family Medicine; Visit Provider Family Medicine
DX: E78.5 Hyperlipidemia, unspecified (principal); I10 Essential (primary) hypertension
CPT/HCPCS: 36415; 80048; 80061; 82043; 82570; 86140

== ENCOUNTER → 2024-02-04 08:09 | Outpatient (CLI) | payer OTHER, SELFPAY ==
[2024-02-04 09:09] LABS: BUN Creatinine Ratio 19.4 (6-22); Blood Urea Nitrogen 38 mg/dL (7-17); Calcium 9.6 mg/dL (8.4-10.2); Carbon Dioxide 26 mmol/L (22-32); Chloride 106 mmol/L (98-107); Estimated Glomerular Filt Rate 26 mL/min (>60); Glucose 89 mg/dL (80-110); HEMOLYSIS < 15 (0-50); Potassium 4.2 mmol/L (3.4-5.1); Sodium 141 mmol/L (137-145)
== END ==
PROVIDERS: PCP Family Medicine; Referring Provider Family Medicine; Visit Provider Family Medicine
DX: I10 Essential (primary) hypertension (principal)
CPT/HCPCS: 36415; 80048

== ENCOUNTER → 2024-03-08 13:38 | Outpatient (CLI) | payer OTHER, SELFPAY ==
[2024-03-08 14:29] LABS: Add Manual Diff / Slide Review NO; Basophils Absolute Auto 0 /uL (0-100); Basophils Percent Auto 0.7 % (0-2); Eosinophils Absolute Auto 100 /uL (0-450); Eosinophils Percent Auto 2.2 % (2-4); Hematocrit 39.2 % (36-46); Hemoglobin 13.4 g/dL (12.0-16.0); Lymphocytes Absolute Auto 1300 /uL (1100-4500); Lymphocytes Percent Auto 24.3 % (25-40); Mean Corpuscular HGB Conc 34.1 % (30-36); Mean Corpuscular Hemoglobin 31.2 PG (26-34); Mean Corpuscular Volume 91.6 fL (80-100); Monocytes Absolute Auto 500 /uL (0-900); Monocytes Percent Auto 8.8 % (3-14); Neutrophils Absolute Auto 3400 /uL (1500-7000); Platelet Count 209 X10^3/uL (150-400); Red Blood Cell Count 4.29 X10^6/uL (4.0-5.2); Red Cell Distribution Width 15.5 % (11.6-14.8); White Blood Cell Count 5.2 X10^3/uL (4.5-11.0)
[2024-03-08 14:48] LABS: BUN Creatinine Ratio 20.6 (6-22); Blood Urea Nitrogen 32 mg/dL (7-17); Calcium 9.7 mg/dL (8.4-10.2); Carbon Dioxide 25 mmol/L (22-32); Chloride 106 mmol/L (98-107); Estimated Glomerular Filt Rate 34 mL/min (>60); Glucose 102 mg/dL (80-110); HEMOLYSIS < 15 (0-50); Phosphorous 4.2 mg/dL (2.8-4.1); Potassium 4.2 mmol/L (3.4-5.1); Sodium 140 mmol/L (137-145)
[2024-03-09 07:37] LABS: Parathyroid Hormone Int 29 pg/mL (15-65)
[2024-03-09 21:07] LABS: Free Kappa Lt Chains, Serum 31.5 mg/L (3.3-19.4); Free Lambda Lt Chains,Serum 22.9 mg/L (5.7-26.3)
[2024-03-10 11:36] LABS: Albumin 3.7 g/dL (2.9-4.4); Alpha-1-Globulin 0.3 g/dL (0.0-0.4); Alpha-2-Globulin 0.8 g/dL (0.4-1.0); Gamma Globulin 0.9 g/dL (0.4-1.8); Globulin Total 2.8 g/dL (2.2-3.9); Protein, Total 6.5 g/dL (6.0-8.5)
[2024-03-10 17:37] LABS: ANA Screen, IFA Negative (.)
[2024-03-14 13:11] LABS: Antimyeloperoxidase Antibodies <0.2 units (0.0-0.9); Antiproteinase 3 Antibodies <0.2 units (0.0-0.9); Cytoplasmic C-ANCA <1:20 titer (Neg:<1:20); Perinuclear P-ANCA <1:20 titer (Neg:<1:20)
== END ==
PROVIDERS: PCP Family Medicine; Referring Provider Internal Medicine Nephrology; Visit Provider Internal Medicine Nephrology
DX: N05.9 Unspecified nephritic syndrome with unspecified morphologic changes (principal); N25.81 Secondary hyperparathyroidism of renal origin; E83.30 Disorder of phosphorus metabolism, unspecified; D70.9 Neutropenia, unspecified; D63.1 Anemia in chronic kidney disease; M31.30 Wegener's granulomatosis without renal involvement; R80.9 Proteinuria, unspecified; D47.2 Monoclonal gammopathy
CPT/HCPCS: 36415; 80048; 83516; 83883; 83970; 84100; 84155; 84165; 85025; 86038; 86256

== ENCOUNTER → 2024-03-16 15:19 | Outpatient (CLI) | payer OTHER, SELFPAY ==
--- NOTE | 2024-03-16 15:20 | DI.US.S_ITS ---
PROCEDURE: US RENAL COMPLETE INDICATIONS: ACUTE RENAL FAILURE TECHNIQUE: Real-time scanning was performed of the kidneys and bladder, with image documentation. COMPARISON: [facility], CT, CT ABDOMEN PELVIS W CON, 03/18/2022, 15:44. FINDINGS: Kidneys: Kidneys are atrophic. Right kidney measures 8.3 cm long; left kidney measures 8.8 cm long. Right renal cortical thickness is 0.6 cm; left renal cortical thickness is 0.5 cm. The cortical echotexture is coarse. No hydronephrosis or nephrolithiasis. No suspicious solid mass lesions. 2.2 x 2.1 x 1.9 cm right inferior pole simple cyst. Bladder: Pre-void bladder volume is 134 mL. Post-void residual is 33 mL. Pre-void images demonstrate no intraluminal masses or stones. On pre-void images, bilateral ureteral jets are noted with color Doppler interrogation. (Of note, ureteral jets may not be detectable in up to 25% of cases due to insufficient differences in specific gravity between ureteral and bladder urine). Miscellaneous: No free pelvic fluid. IMPRESSION: 1. Sonographic signs of underlying medical renal disease without hydronephrosis or urolithiasis. 2. No urinary retention. Dictated by: Collin Sherwood M.D. on 03/17/2024 at 15:15 Approved by: Collin Sherwood M.D. on 03/17/2024 at 15:18
== END ==
PROVIDERS: PCP Family Medicine; Referring Provider Internal Medicine Nephrology; Visit Provider Internal Medicine Nephrology
DX: N17.9 Acute kidney failure, unspecified (principal)
CPT/HCPCS: 76770

== ENCOUNTER → 2024-04-13 13:57 | Outpatient (CLI) | payer OTHER, SELFPAY ==
[2024-04-13 14:44] LABS: Estimated Glomerular Filt Rate 31 mL/min (>60)
== END ==
LOC: LAB 14:02
PROVIDERS: PCP Family Medicine; Referring Provider Internal Medicine Nephrology; Visit Provider Internal Medicine Nephrology
DX: N05.9 Unspecified nephritic syndrome with unspecified morphologic changes (principal)
CPT/HCPCS: 36415; 82565

== ENCOUNTER → 2024-05-23 13:20 | Outpatient (CLI) | payer OTHER, SELFPAY ==
[2024-05-23 14:32] LABS: Estimated Glomerular Filt Rate 26 mL/min (>60)
== END ==
PROVIDERS: PCP Family Medicine; Referring Provider Internal Medicine Nephrology; Visit Provider Internal Medicine Nephrology
DX: N05.9 Unspecified nephritic syndrome with unspecified morphologic changes (principal)
CPT/HCPCS: 36415; 82565

== ENCOUNTER → 2024-06-27 13:45 | Outpatient (CLI) | payer OTHER, SELFPAY ==
[2024-06-27 14:56] LABS: Blood Urea Nitrogen 45 mg/dL (7-17); Calcium 9.8 mg/dL (8.4-10.2); Carbon Dioxide 25 mmol/L (22-32); Chloride 105 mmol/L (98-107); Estimated Glomerular Filt Rate 24 mL/min (>60); Glucose 96 mg/dL (80-110); HEMOLYSIS < 15 (0-50); Potassium 4.7 mmol/L (3.4-5.1); Sodium 139 mmol/L (137-145)
== END ==
PROVIDERS: PCP Family Medicine; Referring Provider Internal Medicine Nephrology; Visit Provider Internal Medicine Nephrology
DX: N05.9 Unspecified nephritic syndrome with unspecified morphologic changes (principal)
CPT/HCPCS: 36415; 80048

== ENCOUNTER 2025-02-28 14:54 | Emergency (ER) | payer OTHER, SELFPAY ==
[2025-02-28 16:06] VITALS: BP 123/58; PULSE 94; RESP 20; TEMP 36.4; O2SAT 99; BMI 27.9
--- NOTE | 2025-02-28 16:18 | EKG_ITS ---
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
--- NOTE | 2025-02-28 16:51 | DI.CT.S_ITS ---
PROCEDURE: CT ABDOMEN PELVIS WO CON INDICATIONS: r/o diverticulitis TECHNIQUE: CT of the abdomen and pelvis was obtained without intravenous contrast. Coronal and sagittal reformats were performed. For radiation dose reduction, the following was used: automated exposure control, adjustment of mA and/or kV according to patient size. COMPARISON: [facility], CT, CT ABDOMEN PELVIS W CON, 03/18/2022, 15:44. FINDINGS: Image quality: Diagnostic. Lower Chest: No significant findings. ABDOMEN: Liver: No contour-deforming mass. Gallbladder: No radiopaque gallstones or wall thickening. Biliary ducts: No biliary dilation. Pancreas: No ductal dilation. Spleen: Size is within normal limits. Adrenal Glands: No adrenal nodules. Kidneys and Ureters: No hydronephrosis. No contour-deforming mass. Bowel and peritoneum: Small hiatal hernia. Multiple diverticula in the small and large bowel. There is fat stranding adjacent to a left upper quadrant small bowel diverticulum mild adjacent fluid or confluent edema. No pneumoperitoneum. No signs of bowel obstruction. Ventral Wall: No significant hernia. Abdominal Nodes: No retroperitoneal or mesenteric adenopathy by size criteria. Vessels: Aorta and inferior vena cava are normal in size. PELVIS: Pelvic Organs: Unremarkable. Bladder: Unremarkable. Pelvic Nodes: No enlarged lymph nodes. Miscellaneous: No inguinal hernias are seen. Bones: No aggressive osseous abnormality. Chronic compression deformities again seen at T11 through L1, not significantly changed when compared to the CT from 03/18/2022. IMPRESSION: Acute left upper quadrant small bowel diverticulitis. There is confluent edema versus ill-defined fluid in the adjacent peritoneal fat, and contained rupture is not excluded. However, no well-defined drainable collection is seen at this time. No free air. Approved by: Mariano Molina M.D. on 02/28/2025 at 17:30
[2025-02-28 16:52] LABS: Hematocrit 41.0 % (36-46); Hemoglobin 13.5 g/dL (12.0-16.0); Lymphocytes Absolute Auto 1200 /uL (1100-4500); Mean Corpuscular HGB Conc 33.0 % (30-36); Mean Corpuscular Hemoglobin 29.9 PG (26-34); Mean Corpuscular Volume 90.5 fL (80-100)
[2025-02-28 16:54] LABS: Add Manual Diff / Slide Review SLIDE REVIEW
[2025-02-28 17:01] LABS: Alanine Aminotransferase 19 IU/L (<35); Albumin 4.6 g/dL (3.5-5.0); Albumin Globulin Ratio 1.4 (1.0-2.8); Alkaline Phosphatase 89 U/L (38-126); Blood Urea Nitrogen 40 mg/dL (7-17); Calcium 9.6 mg/dL (8.4-10.2); Carbon Dioxide 20 mmol/L (22-32); Chloride 104 mmol/L (98-107); Estimated Glomerular Filt Rate 24 mL/min (>60); Globulin 3.2 g/dL (1.7-4.1); Glucose 86 mg/dL (70-99); HEMOLYSIS < 15 (0-50); Lipase 50 U/L (23-300); Potassium 5.0 mmol/L (3.4-5.1); Sodium 137 mmol/L (137-145); Total Protein 7.8 g/dL (6.3-8.2)
[2025-02-28 17:14] LABS: RBC Morphology Normal Morphology
[2025-02-28 19:11] VITALS: BP 117/74; PULSE 94; RESP 18; TEMP 36.8; O2SAT 99
--- NOTE | 2025-02-28 20:38 | ED_ITS ---
HPI - Abdominal Pain General Chief Complaint: Abdominal Pain Stated Complaint: Abd + lower side and back pain x 2 days Time Seen by Provider: 02/28/25 20:37 Source: patient Mode of arrival: Ambulatory History of Present Illness HPI narrative: 80-year-old female who denies prior abdominal surgeries, had prior remote colonoscopy and recalls history of colonic diverticulosis, no bouts of diverticulitis recalled, complains of bilateral lower abdominal pain since 8:00 p.m. last evening, had normal bowel movement this morning, that did not change her pain. No trauma injury or new activities. No painful or frequent urination. No black or red or mucoid stools. No recent exposure to antibiotics. Denies history of known colitis or diverticulitis, no known inflammatory bowel disease. No known colonic or other abdominopelvic cancers. Related Data Home Medications ?Medication ?Instructions ?Recorded ?Confirmed biotin 10 mg tablet 10 mg PO DAILY for hair grow th 10/12/22 01/26/24 Previous Rx's ?Medication ?Instructions ?Recorded triamcinolone acetonide 0.025 % 1 applic topical BID # 15 grams 08/02/23 topical ointment atorvastatin 10 mg tablet 10 mg PO DAILY #90 tabs 05/23 07/14 lisinopril 10 mg tablet 10 mg PO DAILY #90 tabs 11/20 10/13 ciprofloxacin HCl 500 mg tablet 500 mg PO BID 10 days #20 tabs 03/01/25 metronidazole 500 mg tablet 500 mg PO TID #30 tabs 05/15 Allergies Allergy/AdvReac Type Severity Reaction Status Date / Time Sulfa (Sulfonamide Allergy Unknown Verified 02/28/25 16:06 Antibiotics) Patient History Medical History (Updated 03/01/25 @ 00:09 by Nicanor Garcia MD) Vertebral compression fracture Rectal bleeding Plantar fasciitis of left foot Syringoma of eyelid Allergic rhinitis Measles Chicken pox Hearing loss Osteoporosis Carpal tunnel syndrome (~2019) Essential hypertension Surgical History Anesthesia Coarctation of aorta Family History Father Lung cancer Hypertension Sister Hypertension Social History household members: spouse Smoking Status: Never smoker alcohol intake: current substance use type: does not use Smoking Status: Never smoker alcohol intake frequency: a few times a week Exam Narrative Exam Narrative: GENERAL: Well-developed patient, in mild distress. HEAD: Atraumatic. Normocephalic. EYES: Pupils equal round and reactive. Extraocular motions intact. No scleral icterus. No injection or drainage. ENT: Nose without bleeding, purulent drainage. Throat without erythema, tonsillar hypertrophy or exudate. Airway patent. NECK: Trachea midline. Non tender CARDIOVASCULAR: Regular rate and rhythm without murmurs, gallops, or rubs. RESPIRATORY: Clear to auscultation. Breath sounds equal bilaterally. No wheezes, rales, or rhonchi. GASTROINTESTINAL: Abdomen soft, non-tender, nondistended. EXTREMITIES: No edema or joint tenderness. BACK: Nontender without deformity or crepitance. No flank tenderness. NEURO: AOx3. Motor functions grossly nonfocal. SKIN: No rash or erythema of visible areas Initial Vital Signs Initial Vital Signs: Vital Signs Temperature 97.5 F L 02/28/25 16:06 Pulse Rate 94 H 02/28/25 16:06 Respiratory Rate 20 02/28/25 16:06 Blood Pressure 123/58 L 02/28/25 16:06 Pulse Oximetry 99 02/28/25 16:06 Oxygen Delivery Method Room Air 02/28/25 16:06 Course Orders Ordered: ED Orders 02/28/25 23:31 Lactate (Lactic Acid) Stat Discontinued Medications Ciprofloxacin (Ciprofloxacin 250 Mg Tablet) 500 mg PO NOW ONE Stop: 03/01/25 00:01 Last Admin: 03/01/25 00:25 Dose: 500 mg Documented By: FAZAL Lactated Ringer's (Lactated Ringers) 1,000 mls @ 1,000 mls/hr IV BOLUS ONE Stop: 02/28/25 21:37 Last Infusion: 02/28/25 21:45 Dose: Infused Documented By: Admin: 02/28/25 20:57 Dose: 1,000 mls/hr Documented By: FAZAL(2) Metronidazole (Metronidazole 500 Mg Tablet) 500 mg PO NOW ONE Stop: 03/01/25 00:01 Last Admin: 03/01/25 00:25 Dose: 500 mg Documented By: FAZAL Ondansetron HCl (Ondansetron 4 Mg/2 Ml Inj) 4 mg IV NOW PRN PRN Reason: Nausea And Vomiting Ondansetron HCl (Ondansetron 4 Mg Odt) 4 mg PO NOW PRN PRN Reason: Nausea And Vomiting Tramadol HCl (Tramadol 50 Mg Prepack) 1 bottle MISC DIRECTED ONE Stop: 03/01/25 00:08 Last Admin: 03/01/25 00:25 Dose: 1 bottle Documented By: FAZAL Vital Signs Vital signs: Vital Signs - 8 hr 03/01/25 00:21 Temperature 98.9 F Pulse Rate 90 Respiratory Rate 18 Blood Pressure 130/65 Pulse Oximetry 100 Oxygen Delivery Method Room Air MDM - Abdominal Pain Lab Data Attestation: I reviewed the patient's lab results. Lab results narrative: White blood cell count 07917, hemoglobin 13.5, platelet count not reported. Glucose 86. BUN 40 with creatinine 2.06. Serum CO2 20. Sodium 137 with potassium 5.0. Liver functions and lipase normal. Urinalysis pending. 02/28/25 16:26 02/28/25 16:26 Labs: Lab Results 02/28/25 02/28/25 Range/Units 16:26 23:31 WBC 14.9 H (4.5-11.0) X10^3/uL RBC 4.53 (4.0-5.2) X10^6/uL Hgb 13.5 (12.0-16.0) g/dL Hct 41.0 (36-46) % MCV 90.5 (80-100) fL MCH 29.9 (26-34) PG MCHC 33.0 (30-36) % RDW 15.4 H (11.6-14.8) % Plt Count TNP Neut % (Auto) 83.9 H (50-75) % Lymph % (Auto) 8.2 L (25-40) % [place] % (Auto) 7.5 (3-14) % Eos % (Auto) 0.1 L (2-4) % Baso % (Auto) 0.3 (0-2) % Neut # (Auto) 63594 H (8591-5191) /uL Lymph # (Auto) 1200 (8024-3842) /uL [place] # (Auto) 1100 H (0-900) /uL Eos # (Auto) 0 (0-450) /uL Baso # (Auto) 0 (0-100) /uL Clumped Platelets RBC Morphology Normal morphology Sodium 137 (137-145) mmol/L Potassium 5.0 (3.4-5.1) mmol/L Chloride 104 (98-107) mmol/L Carbon Dioxide 20 L (22-32) mmol/L BUN 40 H (7-17) mg/dL Creatinine 2.06 H (0.52-1.04) mg/dL Estimated GFR 24 L (>60) mL/min BUN/Creatinine Ratio 19.4 (6-22) Glucose 86 (70-99) mg/dL Lactate 1.0 (0.7-2.1) mmol/L Calcium 9.6 (8.4-10.2) mg/dL Total Bilirubin 1.0 (0.2-1.3) mg/dL AST 22 (14-36) IU/L ALT 19 (<35) IU/L Alkaline Phosphatase 89 (38-126) U/L Total Protein 7.8 (6.3-8.2) g/dL Albumin 4.6 (3.5-5.0) g/dL Globulin 3.2 (1.7-4.1) g/dL Albumin/Globulin Ratio 1.4 (1.0-2.8) Lipase 50 (23-300) U/L Imaging Data CT scan - abdomen/pelvis: Radiologist's Impression: [place] [address] CT Scan Report Signed Patient: Jackie Salvador MR#: [id number] : 1945 Acct:[id number] Age/Sex: 80 / F Date of Service: 02/28/25 Loc: ED Accession Number: [id number] Procedure: CT abdomen pelvis wo con Ordering Provider: Mere Olmedo D.O. PROCEDURE: CT ABDOMEN PELVIS WO CON INDICATIONS: r/o diverticulitis TECHNIQUE: CT of the abdomen and pelvis was obtained without intravenous contrast. Coronal and sagittal reformats were performed. For radiation dose reduction, the following was used: automated exposure control, adjustment of mA and/or kV according to patient size. COMPARISON: [facility], CT, CT ABDOMEN PELVIS W CON, 03/18/2022, 15:44. FINDINGS: Image quality: Diagnostic. Lower Chest: No significant findings. ABDOMEN: Liver: No contour-deforming mass. Gallbladder: No radiopaque gallstones or wall thickening. Biliary ducts: No biliary dilation. Pancreas: No ductal dilation. Spleen: Size is within normal limits. Adrenal Glands: No adrenal nodules. Kidneys and Ureters: No hydronephrosis. No contour-deforming mass. Bowel and peritoneum: Small hiatal hernia. Multiple diverticula in the small and large bowel. There is fat stranding adjacent to a left upper quadrant small bowel diverticulum mild adjacent fluid or confluent edema. No pneumoperitoneum. No signs of bowel obstruction. Ventral Wall: No significant hernia. Abdominal Nodes: No retroperitoneal or mesenteric adenopathy by size criteria. Vessels: Aorta and inferior vena cava are normal in size. PELVIS: Pelvic Organs: Unremarkable. Bladder: Unremarkable. Pelvic Nodes: No enlarged lymph nodes. Miscellaneous: No inguinal hernias are seen. Bones: No aggressive osseous abnormality. Chronic compression deformities again seen at T11 through L1, not significantly changed when compared to the CT from 03/18/2022. IMPRESSION: Acute left upper quadrant small bowel diverticulitis. There is confluent edema versus ill-defined fluid in the adjacent peritoneal fat, and contained rupture is not excluded. However, no well-defined drainable collection is seen at this time. No free air. Approved by: Mariano Molina M.D. on 02/28/2025 at 17:30 ECG Data Attestation: I personally reviewed and interpreted this ECG as follows: Interpretation: 1618, normal sinus rhythm with rate of 96, no obvious ST segment elevation or depression changes. [place] 184, QRS 76, QTC 447. MDM Narrative Medical decision making narrative: 80-year-old female with no prior abdominopelvic surgeries, prior colonoscopy recalls colonic diverticulosis, with bilateral lower abdominal discomfort since a p.m. last night, increasing, last bowel movement this morning did not change the pain. Afebrile, sirs screen negative. Labs pending. DDx consider colitis, diverticulitis, bowel obstruction, duration, hernia, UTI, enteritis, other. Patient declines pain medications when offered. Initial lab data: White blood cell count 90147, hemoglobin 13.5, platelet count not reported. Glucose 86. BUN 40 with creatinine 2.06. Serum CO2 20. Sodium 137 with potassium 5.0. Liver functions and lipase normal. Urinalysis pending. CT abdomen and pelvis. Impressions: ? Acute left upper quadrant small bowel diverticulitis. There is confluent edema versus ill-defined fluid in the adjacent peritoneal fat, and contained rupture is not excluded. However, no well-defined drainable collection is seen at this time. No free air. See radiology report. Case discussed with surgery Dr. Osborn, who will come to see and consult on patient. Seen by surgery, see his consult note. Patient has nonobstructing non abscessed small bowel diverticulitis that is symptomatic, trial of antibiotics, offered admission, patient had declined. Discharged home on oral antibiotics. Oral ciprofloxacin and metronidazole dose given in the emergency department, prescription for 10 day further course sent to pharmacy. Alcohol to be avoided with metronidazole use, mentioned in discharge instructions. Take antibiotics as directed. Recheck symptoms with your regular provider advised next couple of days. Return precautions discussed. Home per patient request, discharge with family. Discharge Plan Departure Patient Disposition: Home Clinical Impression: Diverticulitis of small bowel Activity Restrictions/Additional Instructions: Lower abdominal pain, no fever, tenderness lower been. CT abdomen and pelvis showed diverticulitis inflammatory change of the small bowel, and without perforation or abscess or obstruction changes. Surgical consultation in the emergency department. Admission was offered, declined. Trial of outpatient antibiotics for now. First doses antibiotics given in the emergency department. Prescription for further ciprofloxacin/Flagyl antibiotic prescription sent to your pharmacy. Home pack of tramadol pain control medication to use if needed. Avoid use of alcohol while taking Flagyl, as this combination can induce nausea and vomiting. Drink plenty of fluids. Recheck with your regular doctor in the next couple of days if symptoms are persisting. Return to this/nearest emergency department for any change worsening symptoms or any concerns prior. Prescriptions: New ciprofloxacin HCl 500 mg tablet 500 mg PO BID 10 Days Qty: 20 0RF metronidazole 500 mg tablet 500 mg PO TID Qty: 30 0RF No Action atorvastatin 10 mg tablet 10 mg PO DAILY Qty: 90 3RF lisinopril 10 mg tablet 10 mg PO DAILY Qty: 90 0RF triamcinolone acetonide 0.025 % ointment 1 applic topical BID Qty: 15 1RF biotin 10 mg tablet 10 mg PO DAILY Referrals: Sara Robb DO [Primary Care Provider, Medical] Stand Alone Forms: Patient Portal/API
[2025-02-28] MEDS: LACTATED RINGERS 1,000 ML 1000 ML IV (20:57)
--- NOTE | 2025-03-01 00:01 | P.HP_ITS ---
History of Present Illness History of Present Illness Date Patient Seen: 03/01/25 Time Patient Seen: 11:30 Date of Onset of Symptoms: 02/28/25 Chief complaint: Abd + lower side and back pain x 2 days Narrative: Patient is an 80-year-old white female who presents to the ER with left-sided abdominal pain which started on 02/28/2025 approximately 8:00 p.m. states it with a sharp constant pain without radiation no nausea vomiting denies any melena she states onset was 8-9 on a scale of 0-10 is currently a 4-5 she feels much better she has been having normal bowel movements. No history of similar pain. Patient was worked up in the emergency room was noted to have a CT scan was showing normal appendix normal gallbladder small hiatal hernia severe diverticular disease of the sigmoid colon compression fracture of T11-L1 but also has proximal jejunal diverticula which are inflamed but non perforated or abscessed. Admitting laboratory shows a WBC of 14.9 hemoglobin is 13.5 hematocrit is 41.0 platelets are not measured sodium is 137 potassium was 5.0 chloride 104 bicarb is 20 BUN 40 creatinine is 2.06 random blood sugar is 86 normal LFTs lipase is 50. Allergies: Sulfa Medications atorvastatin, biotin, lisinopril, topical steroid ointment Past medical history: Corrective lenses, 4 para 0 miscarriage for adopted children to history of a previous GI bleed from diverticular disease. Atherosclerotic vascular disease with peripheral vascular disease hypertension hyperlipidemia obesity history of coarctation of the aorta diverticulosis of the sigmoid colon osteoporosis history of a fractured back playing pickleball 2 years ago fracture of left arm from a fall downstairs. Patient denies any other heart lungs digestive musculoskeletal neurological seizure disorder psychiatric problems risks Infectious Disease HIV or AIDS. Past surgical history: Patient had a colonoscopy several years ago was on remarkable other than diverticular disease Social history: Patient denies any tobacco or recreational drug usage has 2-3 drinks per week Vitals: Temperature is 98.2? pulse 94 respirations 18 BP is 117/74 SaO2 is 99% on room air patient is 5 ft 4 in 163 lb. Head is normocephalic eyes PERRLA EOMI is intact nares are clear septum midline EACs and pinnae unremarkable oropharyngeal cavity is in moderate repair heart regular rate and rhythm without murmurs lungs are clear to auscultation poor inspiratory and expiratory effort poor chest wall motion noted abdomen is obese soft nondistended negative Ashvin's [place] Mcintosh's Helton's McBurney's no masses or peritoneal signs slight left upper quadrant tenderness but no rebound or guarding. Musculoskeletal moderate muscle tone and strength equal bilaterally no gross deficit elicited. Impression: Left upper quadrant pain of [address] scan showing inflamed proximal jejunal diverticula without perforation or abscess. Discussed with patient the findings discussed admission in the hospital for pain control and IV antibiotics patient refuses she desires to go home we will send home on oral antibiotics and pain medications. Discussed diverticular disease in his complications and problems discussed dietary fiber water fluids supplementing with MiraLax. All questions were answered patient's satisfaction patient may be discharged as per ER follow up if any problems questions or worsening symptoms. [facility] Medical History (Updated 02/21/25 @ 11:31 by Sara Robb DO) Vertebral compression fracture Rectal bleeding Plantar fasciitis of left foot Syringoma of eyelid Allergic rhinitis Measles Chicken pox Hearing loss Osteoporosis Carpal tunnel syndrome (~2019) Essential hypertension Surgical History Anesthesia Coarctation of aorta Family History Father Lung cancer Hypertension Sister Hypertension Social History household members: spouse Smoking Status: Never smoker alcohol intake: current substance use type: does not use Meds Home Medications and Allergies Home Medications ?Medication ?Instructions ?Recorded ?Confirmed ?Type biotin 10 mg tablet 10 mg PO DAILY for hair grow th 10/12/22 01/26/24 History triamcinolone acetonide 0.025 % 1 applic topical BID # 15 grams 08/02/23 01/26/24 Rx topical ointment atorvastatin 10 mg tablet 10 mg PO DAILY #90 tabs 05/23 07/14 Rx lisinopril 10 mg tablet 10 mg PO DAILY #90 tabs 11/20 10/13 Rx Allergies Allergy/AdvReac Type Severity Reaction Status Date / Time Sulfa (Sulfonamide Allergy Unknown Verified 02/28/25 16:06 Antibiotics) Exam Vital Signs (past 8 hours): - 02/28/25 16:06 02/28/25 19:11 Temperature 97.5 F L 98.2 F Pulse Rate 94 H 94 H Respiratory Rate 20 18 Blood Pressure 123/58 L 117/74 Pulse Oximetry 99 99 Oxygen Delivery Method Room Air Room Air Oxygen Delivery Method Room Air Objective Labs 02/28/25 16:26 02/28/25 16:26 Labs: Laboratory Results - last 24 hr 02/28/25 16:26 WBC 14.9 H RBC 4.53 Hgb 13.5 Hct 41.0 MCV 90.5 MCH 29.9 MCHC 33.0 RDW 15.4 H Plt Count TNP Neut % (Auto) 83.9 H Lymph % (Auto) 8.2 L [place] % (Auto) 7.5 Eos % (Auto) 0.1 L Baso % (Auto) 0.3 Neut # (Auto) 05115 H Lymph # (Auto) 1200 [place] # (Auto) 1100 H Eos # (Auto) 0 Baso # (Auto) 0 Clumped Platelets RBC Morphology Normal morphology Sodium 137 Potassium 5.0 Chloride 104 Carbon Dioxide 20 L BUN 40 H Creatinine 2.06 H Estimated GFR 24 L BUN/Creatinine Ratio 19.4 Glucose 86 Calcium 9.6 Total Bilirubin 1.0 AST 22 ALT 19 Alkaline Phosphatase 89 Total Protein 7.8 Albumin 4.6 Globulin 3.2 Albumin/Globulin Ratio 1.4 Lipase 50 Assessment & Plan Time-Based Coding :: [TOTAL MINUTES] spent with patient and on the chart (including review of chart, obtaining history, exam, reviewing outside data, placing orders, documenting exam and treatment plan, and counseling patient) on [DATE]. [employer] Supervisor Document charge(s): Yes
[2025-03-01 00:10] LABS: Lactate (Lactic Acid) 1.0 mmol/L (0.7-2.1)
[2025-03-01 00:21] VITALS: BP 130/65; PULSE 90; RESP 18; TEMP 37.2; O2SAT 100
[2025-03-01] MEDS: CIPROFLOXACIN 250 MG TABLET 500 MG PO (00:25)
== END 2025-03-01 00:28 | disposition home or self-care (01) ==
PROVIDERS: Emergency Medicine; Emergency Provider Emergency Medicine; PCP Family Medicine
DX: K57.12 Diverticulitis of small intestine without perforation or abscess without bleeding (principal)
CPT/HCPCS: 74176; 80053; 83605; 83690; 85025; 93005; 96360; 99284

== ENCOUNTER → 2025-03-14 10:45 | Outpatient (CLI) | payer OTHER, SELFPAY ==
[2025-03-14 12:07] LABS: Add Manual Diff / Slide Review NO; Hematocrit 35.3 % (36-46); Hemoglobin 12.1 g/dL (12.0-16.0); Lymphocytes Absolute Auto 1200 /uL (1100-4500); Mean Corpuscular HGB Conc 34.2 % (30-36); Mean Corpuscular Hemoglobin 29.7 PG (26-34); Mean Corpuscular Volume 86.9 fL (80-100); Platelet Count 354 X10^3/uL (150-400)
[2025-03-14 12:29] LABS: Blood Urea Nitrogen 41 mg/dL (7-17); Calcium 9.2 mg/dL (8.4-10.2); Carbon Dioxide 22 mmol/L (22-32); Chloride 108 mmol/L (98-107); Estimated Glomerular Filt Rate 21 mL/min (>60); Glucose 89 mg/dL (70-99); HEMOLYSIS < 15 (0-50); Potassium 4.8 mmol/L (3.4-5.1); Sodium 140 mmol/L (137-145)
== END ==
PROVIDERS: PCP Family Medicine; Referring Provider Family Medicine; Visit Provider Family Medicine
DX: N18.4 Chronic kidney disease, stage 4 (severe) (principal)
CPT/HCPCS: 36415; 80048; 85025

== ENCOUNTER → 2025-03-15 11:00 | Outpatient (ROUT) | payer OTHER, SELFPAY ==
[2025-03-16 08:18] LABS: Clostridium Difficile Tox PCR Negative for C. diff (Negative)
== END ==
LOC: LAB 03-16 07:25
PROVIDERS: PCP Family Medicine; Visit Provider Family Medicine
DX: R19.7 Diarrhea, unspecified (principal)
CPT/HCPCS: 87493

== ENCOUNTER → 2025-04-12 09:45 | Outpatient (CLI) | payer OTHER, SELFPAY ==
--- NOTE | 2025-04-12 09:46 | DI.RAD.S_ITS ---
PROCEDURE: XR DEXA AXIAL SKELETON INDICATIONS: Osteoprosis COMPARISON: [facility], CR, XR DEXA AXIAL SKELETON, 07/14/2022, 11:44. [facility], CR, XR DEXA AXIAL SKELETON, 03/14/2019, 10:25. FINDINGS: Lumbar Spine: Bone mineral density 1.112 g/cm2, T score 0.3, increased by 8.9%. Left Femoral Neck: Bone mineral density 0.592 g/cm2, T score -2.3. Left Hip: Bone mineral density 0.694 g/cm2, T score -2.0, no significant change compared to prior. Fracture Risk Calculation (when applicable): 10-year fracture risk of a major osteoporotic fracture 24 percent and of a hip fracture 7.2 percent. (T score greater or equal to -1.0 to: NORMAL) (T score from -1.1 to -2.4: OSTEOPENIA) (T score less than or equal to -2.5: OSTEOPOROSIS) IMPRESSION: Low bone mineral density (osteopenia) by WHO classification. Follow-up guidelines as follows: Osteoporosis: Consider a repeat DEXA and Vertebral Fracture Assessment (VFA) exam in 2 years or sooner if medically necessary, to reassess this patient's status. Osteopenia: Consider a repeat DEXA in 2-3 years to reassess this patient's status, or if there is a new clinical indication. Normal: Consider a repeat DEXA in 5 years or sooner, or if there is a new clinical indication. All treatment decisions require clinical judgment and consideration of individual patient factors, including patient preferences, comorbidities, previous drug use, risk factors not captured in the FRAX model (e.g., frailty, falls, vitamin D deficiency, increased bone turnover, interval significant decline in bone density ) and possible under- or over-estimation of fracture risk by FRAX. In addition, the NOF Guide recommends that FDA-approved medical therapies be considered in postmenopausal women and men age >= 50 years with a: * Hip or vertebral (clinical or morphometric) fracture * T-score of <=-2.5 at the spine or hip * Ten-year fracture probability by FRAX of >= 3% for hip fracture or >=20% for major osteoporotic fracture. Dictated by: Heber Anna M.D. on 04/12/2025 at 14:27 Approved by: Heber Anna M.D. on 04/12/2025 at 14:30
== END ==
LOC: RAD 09:45
PROVIDERS: PCP Family Medicine; Referring Provider Family Medicine; Visit Provider Family Medicine
DX: M81.0 Age-related osteoporosis without current pathological fracture (principal)
CPT/HCPCS: 77080